=== PATIENT | female | born 1955 | race Caucasian/White ===

== ENCOUNTER 2019-08-08 14:21 | Observation (INO) | payer OTHER, MEDICARE ==
[~2019-08-08] VITALS: Ht 162.6 cm; Wt 92.7 kg
[2019-08-08] MEDS ORDERED: morphine 4 MG/ML inj SYRINge IV ONE (14:40)
[2019-08-08] MEDS ORDERED: ondansetron/PF 4mg/2ml inj IV ONE (14:40)
[2019-08-08] MEDS: nitroGLYCERIN 0.4mg SUBLingual tab SL PRN ×5 (15:07→19:48)
[2019-08-08 15:10] LABS: BASOPHILS # (AUTO) 0.1 X10'3 (0-0.2); EOSINOPHILS # (AUTO) 0.1 X10'3 (0-0.9); EOSINOPHILS % (AUTO) 1.4 % (0-6); HEMATOCRIT 42.8 % (35.0-45.0); HEMOGLOBIN 15.1 g/dl (12.0-16.0); LYMPHOCYTES # (AUTO) 3.1 X10'3 (1.1-4.8); LYMPHOCYTES % (AUTO) 30.9 % (21-51); MEAN CORPUSCULAR HEMOGLOBIN 32.5 PG (27.0-31.0); MEAN CORPUSCULAR HGB CONC 35.2 g/dL (33.0-36.5); MEAN CORPUSCULAR VOLUME 92.1 FL (78-98); MEAN PLATELET VOLUME 8.5 FL (7.4-10.4); MONOCYTES # (AUTO) 0.5 X10'3 (0-0.9); NEUTROPHILS # (AUTO) 6.2 X10'3 (1.8-7.7); NEUTROPHILS % (AUTO) 61.7 % (42-75); PLATELET COUNT 212 X10'3 (140-440); RED BLOOD COUNT 4.65 X10'6 (4.20-5.60); RED CELL DISTRIBUTION WIDTH 12.4 % (11.5-14.5)
[2019-08-08 15:27] LABS: ALANINE AMINOTRANSFERASE 26 U/L (12-78); ALBUMIN 3.9 G/DL (3.4-5.0); ALBUMIN/GLOBULIN RATIO 1.3 (1.1-1.5); ALKALINE PHOSPHATASE 210 IU/L (46-116); ANION GAP 8 (8-16); ASPARTATE AMINO TRANSFERASE 21 U/L (10-37); BILIRUBIN,TOTAL 0.2 MG/DL (0.1-1.0); BLOOD UREA NITROGEN 19 MG/DL (7-18); BUN/CREATININE RATIO 15.8 (6.6-38.0); CALCIUM 8.9 MG/DL (8.5-10.1); CHLORIDE 107 MMOL/L (99-107); GLUCOSE 187 MG/DL (70-104); POTASSIUM 3.6 MMOL/L (3.5-5.1); SODIUM 142 MMOL/L (135-145); TOTAL CARBON DIOXIDE 27.4 MMOL/L (24-32); TOTAL PROTEIN 6.8 G/DL (6.4-8.2); eGFR 45 ML/MIN
[2019-08-08] MEDS ORDERED: aminophylline 250mg/10ml inj. IV PRN (16:00)
[2019-08-08] MEDS ORDERED: HYDROcodone/acetaminophen 10/325mg tab PO PRN (16:00)
[2019-08-08] MEDS ORDERED: acetaminophen 650mg rectal suppository RC PRN (16:00)
[2019-08-08] MEDS ORDERED: metoprolol tartrate 1mg/ml inj IV PRN (16:00)
[2019-08-08] MEDS ORDERED: magnesium hydroxide 30ml (MOM) UD suspension PO PRN (16:00)
[2019-08-08] MEDS ORDERED: ondansetron/PF 4mg/2ml inj IV PRN (16:00)
[2019-08-08] MEDS ORDERED: magnesium 2GM in 50ml NS 50 ML IV PRN (16:00)
[2019-08-08] MEDS ORDERED: duloxetine 20mg capsule.DR PO SCH (16:00)
[2019-08-08] MEDS ORDERED: morphine 2 MG/ML inj. syringe IV PRN (16:00)
[2019-08-08] MEDS ORDERED: magnesium 4gm in 100ml NS 100 ML IV PRN (16:00)
[2019-08-08] MEDS ORDERED: nitroGLYCERIN 0.4mg SUBLingual tab SL PRN (16:00)
[2019-08-08] MEDS ORDERED: mag hydrox/Alum hydrox/simeth 30ml oral suspension PO PRN (16:00)
[2019-08-08] MEDS ORDERED: potassium CL 10mEq/100ml bag 100 ML IV PRN ×2 (16:00)
[2019-08-08] MEDS ORDERED: duloxetine 30mg CAPSULE.DR PO SCH (16:00)
[2019-08-08] MEDS ORDERED: HYDROcodone/acetaminophen 5mg/325mg tablet PO PRN (16:00)
[2019-08-08] MEDS ORDERED: duloxetine 30mg CAPSULE.DR PO ONE ×2 (16:00→23:54)
[2019-08-08] MEDS ORDERED: potassium Cl 20 mEq SR tablet PO PRN ×2 (16:00)
[2019-08-08] MEDS ORDERED: regadenoson 0.4mg/5ml syringe IV PRN (16:00)
[2019-08-08] MEDS ORDERED: magnesium Cl slow-release 64mg tablet PO PRN (16:00)
[2019-08-08] MEDS ORDERED: acetaminophen 325mg tablet PO PRN ×2 (16:00)
[2019-08-08] MEDS ORDERED: bisacodyl 10mg suppository rectal RC PRN (16:00)
[2019-08-08] MEDS ORDERED: diphenhydrAMINE 25mg capsule PO PRN (16:00)
[2019-08-08 16:16] LABS: CLARITY,URINE CLEAR (Clear); COLOR,URINE YELLOW (Yellow); GLUCOSE, URINE 250 mg/dl (Neg); KETONES,URINE NEGATIVE (Neg); LEUKOCYTE ESTERASE ,URINE NEGATIVE (Neg); NITRITES, URINE NEGATIVE (Neg); OCCULT BLOOD,URINE NEGATIVE (Neg); PROTEIN,URINE NEGATIVE (Neg); UROBILINOGEN,URINE 0.2 E.U/dL (0.2-1.0)
[2019-08-08 16:17] LABS: UA COLLECTION TYPE CLN CATCH MIDSTREAM
[2019-08-08 16:34] LABS: HEMOGLOBIN A1C 8.3 % (4.5-6.2)
[2019-08-08] MEDS: normal saline 1000ml 1,000 ML IV SCH (16:46)
[2019-08-08] MEDS ORDERED: LYR75C PO (16:50)
[2019-08-08] MEDS ORDERED: AMLO5TAB4 PO (16:50)
[2019-08-08] MEDS ORDERED: ALOG25TA2 PO (16:50)
[2019-08-08] MEDS ORDERED: MIRT30TA8 PO (16:50)
[2019-08-08] MEDS ORDERED: BUSP10TA10 PO (16:52)
[2019-08-08] MEDS ORDERED: DULO30CA52 PO (16:53)
[2019-08-08] MEDS ORDERED: DOCU-329 PO (16:55)
[2019-08-08] MEDS ORDERED: LEVO150T PO (16:55)
[2019-08-08] MEDS ORDERED: PANT20TA3 PO (16:55)
[2019-08-08] MEDS ORDERED: SIMV10TA98 PO (16:56)
[2019-08-08] MEDS ORDERED: LOSA100T57 PO (16:56)
[2019-08-08] MEDS ORDERED: OXYC-511 PO (16:58)
[2019-08-08] MEDS ORDERED: TEMA15CA5 PO (16:58)
[2019-08-08] MEDS ORDERED: XAL0.005OS OP (17:04)
[2019-08-08] MEDS ORDERED: LEVA1.2544 IH (17:04)
[2019-08-08] MEDS ORDERED: INSU100V9 SQ (17:04)
[2019-08-08] MEDS ORDERED: MOME13HF INH (17:06)
[2019-08-08] MEDS: morphine 2 MG/ML inj. syringe IV PRN ×2 (17:54→22:04)
--- NOTE | 2019-08-08 18:40 | NUR ---
Patient in room ED 6. I have received report from Jose DIAZ in ER and had the opportunity to ask questions and assume patient care.
[2019-08-08] MEDS ORDERED: levalbuterol 1.25mg/0.5ml nebule IH PRN (18:55)
[2019-08-08 19:30] VITALS: BP 128/48
[2019-08-08] MEDS: K and/or MAG REPLACEMENT MC SCH (20:00)
[2019-08-08] MEDS ORDERED: non-formulary drug (Mometasone/Formoterol (Dulera 200 Mcg/5 Mcg Inhaler) 2 PUFFS) INH SCH (20:00)
--- NOTE | 2019-08-08 20:08 | NUR ---
promotional table spacer PAGER ID: [phone] MESSAGE: [place] janene de la garza needs dm 2 diabetic protocol for Humalog/lantus-bg 189,. WAGNER ACCNoel [id number]
[2019-08-08] MEDS: busPIRone 5mg tablet PO SCH (20:12)
[2019-08-08] MEDS: pregabalin 75mg capsule PO SCH (20:15)
[2019-08-08] MEDS: heparin, porcine 5000 units/ml vial SQ SCH (20:17)
[2019-08-08] MEDS: albuterol 2.5 MG/3 ML nebule NEB SCH (20:32)
[2019-08-08] MEDS: budesonide 0.5mg/2ml UD nebule IH SCH (20:32)
[2019-08-08] MEDS ORDERED: latanoprost 0.005% 2.5ml ophthalmic drops EACHEYE SCH (21:00)
[2019-08-08] MEDS ORDERED: atorvastatin 10mg tablet PO SCH (21:00)
[2019-08-08] MEDS ORDERED: temazepam 15mg capsule PO SCH (21:00)
[2019-08-08] MEDS ORDERED: mirtazapine 15mg tablet PO SCH (21:00)
--- NOTE | 2019-08-08 21:59 | NUR ---
Se promotional table spacer PAGER ID: [phone] MESSAGE: [place] Pam Waldropela needs is diabetic type 2, needs orders for blood glucose management please. Lauryn STAPLES [id number] cond Page to hospitalist
[2019-08-08 22:00] VITALS: BP 129/53
[2019-08-08] MEDS ORDERED: glucagon, human recombinant 1mg kit SUBCUT PRN (23:45)
[2019-08-08] MEDS ORDERED: MESSAGE TO PHARMACY PO ONE (23:45)
[2019-08-08] MEDS ORDERED: insulin Lispro (HumaLOG) vial - multi-dose SQ SCH (23:45)
[2019-08-08] MEDS ORDERED: dextrose 50%-water 50ml dispensing syringe IV PRN ×2 (23:45)
[2019-08-08] MEDS ORDERED: dextrose ORAL solution 15 GM/59 ML bottle PO PRN ×2 (23:45)
[2019-08-09] VITALS (9 sets, daily range): BP systolic 112–143; BP diastolic 45–64
[2019-08-09] MEDS: nitroGLYCERIN 0.4mg SUBLingual tab SL PRN (01:18)
[2019-08-09] MEDS: morphine 2 MG/ML inj. syringe IV PRN ×3 (02:03→12:50)
[2019-08-09] MEDS: albuterol 2.5 MG/3 ML nebule NEB SCH ×2 (02:20→07:42)
[2019-08-09 02:29] LABS: ALANINE AMINOTRANSFERASE 26 U/L (12-78); ALBUMIN 3.3 G/DL (3.4-5.0); ALBUMIN/GLOBULIN RATIO 1.3 (1.1-1.5); ALKALINE PHOSPHATASE 190 IU/L (46-116); ANION GAP 4 (8-16); ASPARTATE AMINO TRANSFERASE 16 U/L (10-37); BILIRUBIN,TOTAL 0.1 MG/DL (0.1-1.0); BLOOD UREA NITROGEN 19 MG/DL (7-18); BUN/CREATININE RATIO 20.2 (6.6-38.0); CALCIUM 8.3 MG/DL (8.5-10.1); CHLORIDE 109 MMOL/L (99-107); CREATININE 0.94 MG/DL (0.40-0.90); GLUCOSE 223 MG/DL (70-104); POTASSIUM 3.9 MMOL/L (3.5-5.1); SODIUM 143 MMOL/L (135-145); TOTAL CARBON DIOXIDE 29.6 MMOL/L (24-32); TOTAL PROTEIN 5.9 G/DL (6.4-8.2); eGFR 60 ML/MIN
[2019-08-09 02:31] LABS: CHOL/HDL RATIO 2.9 (0.00-4.99); CHOLESTEROL 118 MG/DL (0-200); HDL CHOLESTEROL 41 MG/DL (35-60); LDL CHOLESTEROL 63 MG/DL (50-100); MAGNESIUM 1.9 MG/DL (1.5-2.4); PHOSPHORUS 4.4 MG/DL (2.3-4.5); TRIGLYCERIDES 130 MG/DL (20-135)
[2019-08-09 02:34] LABS: BASOPHILS % (AUTO) 0.5 % (0-1); EOSINOPHILS # (AUTO) 0.1 X10'3 (0-0.9); EOSINOPHILS % (AUTO) 1.1 % (0-6); HEMOGLOBIN 13.3 g/dl (12.0-16.0); LYMPHOCYTES # (AUTO) 2.8 X10'3 (1.1-4.8); LYMPHOCYTES % (AUTO) 30.8 % (21-51); MEAN CORPUSCULAR HEMOGLOBIN 31.9 PG (27.0-31.0); MEAN CORPUSCULAR HGB CONC 34.2 g/dL (33.0-36.5); MEAN CORPUSCULAR VOLUME 93.3 FL (78-98); MONOCYTES # (AUTO) 0.7 X10'3 (0-0.9); MONOCYTES % (AUTO) 8.1 % (2-12); NEUTROPHILS # (AUTO) 5.3 X10'3 (1.8-7.7); NEUTROPHILS % (AUTO) 59.5 % (42-75); PLATELET COUNT 186 X10'3 (140-440); RED BLOOD COUNT 4.18 X10'6 (4.20-5.60); RED CELL DISTRIBUTION WIDTH 12.4 % (11.5-14.5); WHITE BLOOD COUNT 8.9 X10'3 (4.5-11.0)
[2019-08-09] MEDS ORDERED: ketorolac trometh. 30mg/ml inj. IM ONE (04:05)
[2019-08-09] MEDS: normal saline 1000ml 1,000 ML IV SCH (06:00)
--- NOTE | 2019-08-09 06:42 | NUR ---
Problems reprioritized. Patient report given, questions answered & plan of care reviewed with rick mclaughlin.
[2019-08-09] MEDS ORDERED: levoTHYROXINE 75mcg tablet PO SCH (07:00)
[2019-08-09] MEDS ORDERED: pantoprazole 40mg Tablet.DR PO SCH (07:30)
[2019-08-09] MEDS: budesonide 0.5mg/2ml UD nebule IH SCH (07:42)
[2019-08-09] MEDS: K and/or MAG REPLACEMENT MC SCH (07:45)
[2019-08-09] MEDS: pregabalin 75mg capsule PO SCH (07:45)
[2019-08-09] MEDS: heparin, porcine 5000 units/ml vial SQ SCH (07:46)
[2019-08-09] MEDS: busPIRone 5mg tablet PO SCH (07:46)
[2019-08-09] MEDS ORDERED: losartan 50mg tablet PO SCH (08:00)
[2019-08-09] MEDS ORDERED: docusate sod 250mg capsule PO SCH (08:00)
[2019-08-09] MEDS ORDERED: amLODIPine 5mg tablet PO SCH (08:00)
--- NOTE | 2019-08-09 08:09 | NUR ---
PAGED HOSP, "KATIE [phone]- PLEASE CALL [facility] RE: [phone], IN ACTIVE CHEST PAIN, RECEIVED MORPHINE, MAY SHE GO TO [facility] WITH ACTIVE C.P?" AWAITING ON FURTHER DIRECTION FROM PETR
--- NOTE | 2019-08-09 08:15 | NUR ---
RECEIVED CALL BACK, GUCCI GAVE OKAY FOR PATIENT TO CONTINUE WITH LEXISCAN.
--- NOTE | 2019-08-09 11:16 | NUR ---
PAGED HOSPITALIST, "KATIE [phone] [phone] TAE CORTEZ RESULTS ARE AVAILABLE." TO MAKE AWARE OF THIS.
--- NOTE | 2019-08-09 12:43 | NUR ---
DM consult: Pt with A1c 8.3 seen at bedside. Pt reports she is going to start seeing a new MD at the [facility] and reports an upcoming appointment for DM management. Pt states she checks her BG levels 2-3 times a day with resulting numbers in the 80s in the morning up to 250s in the evening. Pt states she takes her DM medications per rx. Pt provided with written and verbal DM education with referral to outpatient DM class and RD contact information. Pt endorses a good appetite and denies food allergies or difficulty chewing/swallowing. Pt reports constipation stating that she takes bowel care medications at home. Pt currently receiving routine Colace with PRN MoM. Will continue to follow. Addendum: 08/09/19 at [address] Amended: Links added.
--- NOTE | 2019-08-09 14:15 | NUR ---
DISCUSSED DISCHARGE INSTRUCTIONS AT THIS TIME, VERBALIZED UNDERSTANDING, QUESTIONS ANSWERED. EAGER TO GO HOME, AT BEDSIDE. IV REMOVED WITH CATH[facility] INTACT. TELE DC'D. BELONGINGS SENT WITH PATIENT. ESCORTED OUT VIA W/C PER [facility] STAFF WITHOUT EVENT. NO NEW MEDS. TO FOLLOW UP WITH HER MD MATA.
[2019-08-09] MEDS ORDERED: duloxetine 30mg CAPSULE.DR PO SCH (16:00)
[2019-08-09] MEDS ORDERED: insulin glargine (Lantus) pen - multi-dose SQ SCH (21:00)
== END 2019-08-09 14:15 | disposition home or self-care (01) ==
LOC: ER 14:22 → EDBD 14:22 → ED HOLD 16:08 → EDBEDREQ 18:03 → MED 3N 19:20
PROVIDERS: ADMIT Family Medicine; ATTEND Family Medicine
DX: R07.89 Other chest pain (principal); I12.9 Hypertensive chronic kidney disease with stage 1 through stage 4 chronic kidney disease, or unspecified chronic kidney disease; E11.22 Type 2 diabetes mellitus with diabetic chronic kidney disease; N18.9 Chronic kidney disease, unspecified; N17.9 Acute kidney failure, unspecified; E11.42 Type 2 diabetes mellitus with diabetic polyneuropathy; G89.4 Chronic pain syndrome; I24.9 Acute ischemic heart disease, unspecified; E11.65 Type 2 diabetes mellitus with hyperglycemia; E78.00 Pure hypercholesterolemia, unspecified; F41.9 Anxiety disorder, unspecified; F32.9 Major depressive disorder, single episode, unspecified; K21.9 Gastro-esophageal reflux disease without esophagitis; E78.5 Hyperlipidemia, unspecified; E03.9 Hypothyroidism, unspecified; J45.909 Unspecified asthma, uncomplicated; F17.210 Nicotine dependence, cigarettes, uncomplicated; Z90.49 Acquired absence of other specified parts of digestive tract; Z79.4 Long term (current) use of insulin; Z79.899 Other long term (current) drug therapy; Z79.890 Hormone replacement therapy; Z88.8 Allergy status to other drugs, medicaments and biological substances
CPT/HCPCS: 36415; 71045; 78452; 80053; 80061; 81003; 82948; 83036; 83735; 84100; 84484; 85025; 87081; 93005; 93017; 93306; 94640; 94760; 96361; 96372; 96374; 96375; 96376; 99284; A9500; G0378; J1644; J1815; J2270; J2405; J2785; J7030; J7626